=== PATIENT | female | born 1975 | race Two or more races ===

== ENCOUNTER 2016-05-07 14:07 | Emergency (ER) | payer SELFPAY ==
[~2016-05-07] VITALS: Ht 152.4 cm; Wt 86.2 kg
[2016-05-07] MEDS ORDERED: Ketorolac 60mg Inj IM ONE (14:45)
--- NOTE | 2016-05-07 14:45 | Emergency Room Report ---
History of Present Illness General Chief Complaint: Back Pain-No Injury Source: Patient Present Illness HPI 40-year-old female presents to emergency Department complaining of 8/10 in severity left-sided low back pain that radiates down into the left leg x3 weeks. Patient states onset was after cleaning floors at work. Patient states that she was evaluated and prescribed Bell Buckle and Colace which did not provide much relief beyond upsetting her stomach. Patient states that she did not complete her course of prescribed medications. She denies trauma or fall. She denies numbness or tingling. Patient describes pain as sharp and shooting in nature. Patient denies previous injury or previous episodes of similar symptoms. She denies recent spinal procedures, nausea, vomiting, fevers, chills or history of neoplastic disease. Denies numbness tingling or loss of sensation or gross motor movements of the extremities, incontinence of bowel or bladder.Denies hematuria, frequency, or dysuria. Denies CP, Palpitations, LOC, AMS, dizziness, Changes in Vision, Sensation, paresthesias, or a sudden severe headache. Allergies: Coded Allergies: No Known Allergies (Unverified , 05/07/16) Patient History Past Medical History: see triage record Past Surgical History: none Pertinent Family History: none Last Menstrual Period: 04/24/16 Now: No Immunizations: UTD Reviewed Nursing Documentation: PMH: Agreed, PSxH: Agreed Nursing Documentation-PMH Past Medical History: No Stated History Review of Systems All Other Systems: negative except mentioned in HPI Physical Exam Vital Signs Date Time Temp Pulse Resp B/P Pulse Ox O2 Delivery O2 Flow Rate FiO2 05/07/16 14:20 98.1 81 14 101/68 98 Room Air Sp02 EP Interpretation: reviewed, normal General Appearance: no apparent distress, alert, GCS 15, non-toxic Head: normocephalic, atraumatic Eyes: bilateral eye PERRL, bilateral eye normal inspection ENT: hearing grossly normal, normal pharynx, no angioedema, normal voice Neck: full range of motion, supple/symm/no masses Respiratory: chest non-tender, lungs clear, normal breath sounds, speaking full sentences Cardiovascular #1: regular rate, rhythm, no edema Genitourinary: no CVA tenderness Musculoskeletal: back normal, gait/station normal, other - Mild Tenderness to palpation to paraspinal muscles of the left lower back, no spinous process tenderness, no midline tenderness. pt. unable to find POC, FROM with pain exacerbated with standing straight, and forward flexion. Neurologic: alert, oriented x3, responsive, motor strength/tone normal, sensory intact, speech normal Psychiatric: judgement/insight normal, memory normal, mood/affect normal, no suicidal/homicidal ideation Skin: normal color, no rash, warm/dry, well hydrated Lymphatic: no adenopathy Medical Decision Making PA Attestation Dr. forrest is my supervising Physician whom patient management has been discussed with. Diagnostic Impression: Primary Impression: Sciatica of left side ER Course 40-year-old female presents to emergency Department complaining of 8/10 in severity left-sided low back pain that radiates down into the left leg x3 weeks. Patient states onset was after cleaning floors at work. Patient states that she was evaluated and prescribed Bell Buckle and Colace which did not provide much relief beyond upsetting her stomach. Patient states that she did not complete her course of prescribed medications. She denies trauma or fall. She denies numbness or tingling. Patient describes pain as sharp and shooting in nature. Patient denies previous injury or previous episodes of similar symptoms. She denies recent spinal procedures, nausea, vomiting, fevers, chills or history of neoplastic disease Ddx considered: epidural abscess, fracture, sprain/strain, meningitis, spinal chord injury. Vital signs reviewed and are WNL during ED visit. Pt. is afebrile with no signs of infection No new symptoms, and denies recent trauma. No saddle anesthesia noted, Pt. denies incontinence Neurovascular is intact * Mild Tenderness to palpation to paraspinal muscles of the left lower back, no spinous process tenderness, no midline tenderness. * pt. unable to find POC, FROM with pain exacerbated with standing straight, and forward flexion. ORDERS: none warranted at this time. INTERVENTIONS: - 40mg IM Toradol -350mg Soma PO DISCHARGE: At this time pt. is stable for d/c to home. Will provide printed patient care instructions, and any necessary prescriptions. Care plan and follow up instructions have been discussed with the patient prior to discharge. Last Vital Signs Date Time Temp Pulse Resp B/P Pulse Ox O2 Delivery O2 Flow Rate FiO2 05/07/16 14:20 98.1 81 14 101/68 98 Room Air Disposition: HOME, SELF-CARE Condition: Stable Scripts Cyclobenzaprine Hcl* (FLEXERIL*) 10 Mg Tablet 10 MG ORAL THREE TIMES A DAY for 7 Days, #21 TAB Prov: Jania Betancourt 05/07/16 Ibuprofen* (MOTRIN*) 600 Mg Tablet 600 MG ORAL THREE TIMES A DAY, #30 TAB 0 Refills Prov: Jania Betancourt 05/07/16 Departure Forms: Return to Work Return to Work Date: May 08, 2016 Work Restrictions: No Heavy Lifting, No Prolonged Standing Return to Full Activity: May 21, 2016 Patient Instructions: Sciatica Additional Instructions: Take medications as directed. Follow up with PCP in 3-5 days Return sooner to ED if new symptoms occur, or current symptoms become worse. Do not drink alcohol, drive, or operate heavy machinery while taking Muscle relaxer: Flexeril as this may cause drowsiness. - Please note that this Emergency Department Report was dictated using [employer] product development manager technology software, occasionally this can lead to erroneous entry secondary to interpretation by the dictation equipment. Jania Betancourt May 07, 2016 14:45
[2016-05-07] MEDS ORDERED: CYCLOBENZAPRINE10 MG ORAL (14:49)
[2016-05-07] MEDS ORDERED: IBUPROFEN600 MG ORAL (14:49)
[2016-05-07 14:59] VITALS: BP 109/70
[2016-05-07 15:03] VITALS: BP 109/70
== END 2016-05-07 15:05 | disposition home or self-care (01) ==
LOC: EMR 14:43
DX: M54.42 Lumbago with sciatica, left side (principal)
CPT/HCPCS: 96372; 99284

== ENCOUNTER 2017-01-02 13:01 | Emergency (ER) | payer MEDICAID ==
[~2017-01-02] VITALS: Ht 152.4 cm; Wt 88.5 kg
[~2017-01-02 13:01] MED LIST: CYCLOBENZAPRINE10 MG ORAL; IBUPROFEN600 MG ORAL
[2017-01-02] MEDS ORDERED: Ketorolac 30mg Inj IM ONE (13:30)
[2017-01-02] MEDS ORDERED: Dexamethasone 4mg/ml vial IM ONE (14:45)
[2017-01-02] MEDS ORDERED: TRAMADOL HCL50 MG ORAL (15:18)
[2017-01-02] MEDS ORDERED: IBUPROFEN600 MG ORAL (15:18)
[2017-01-02] MEDS ORDERED: CARBAMAZEPINE200 M3 ORAL (15:18)
[2017-01-02 15:25] VITALS: BP 125/66
--- NOTE | 2017-01-02 17:26 | Emergency Room Report ---
History of Present Illness General Chief Complaint: Pain Source: Patient Present Illness HPI The patient is a 41-year-old female presenting for lower back pain. She was in this emergency department recently for the same complaint and diagnosed with sciatica. She states the pain initially began to regress but has worsened now to to work. Pain is an 8/10 burning/tingling sensation which begins at the left lower back and radiates down the back of the left leg. Worse with movement and sitting. She denies any injury to the area. She denies any numbness or tingling. She denies any other symptoms including nausea, vomiting , fever, chills, abdominal pain, chest pain, shortness of breath, urinary incontinence, weakness Allergies: Coded Allergies: No Known Allergies (Unverified , 05/07/16) Patient History Past Medical History: see triage record Pertinent Family History: none Reviewed Nursing Documentation: PMH: Agreed, PSxH: Agreed Nursing Documentation-PMH Past Medical History: No Stated History Review of Systems All Other Systems: negative except mentioned in HPI Physical Exam Vital Signs Date Time Temp Pulse Resp B/P (MAP) Pulse Ox O2 Delivery O2 Flow Rate FiO2 01/02/17 13:07 97.2 104 24 125/66 98 Room Air Sp02 EP Interpretation: reviewed, normal General Appearance: no apparent distress, alert, GCS 15, non-toxic Head: normocephalic, atraumatic Eyes: bilateral eye normal inspection, bilateral eye PERRL ENT: hearing grossly normal, normal pharynx, no angioedema, normal voice Neck: full range of motion, supple/symm/no masses Musculoskeletal: normal inspection, gait/station normal, normal range of motion , no calf tenderness, tender - TTP over the L lumbar paraspinal muscles and SI joint Neurologic: alert, oriented x3, responsive, motor strength/tone normal, sensory intact, speech normal, abnormal gait - antalgic Psychiatric: judgement/insight normal, memory normal, mood/affect normal, no suicidal/homicidal ideation Skin: normal color, no rash, warm/dry, well hydrated Lymphatic: no adenopathy Medical Decision Making PA Attestation Dr. Sykes is my supervising physician. Patient management was discussed with my supervising physician Diagnostic Impression: Primary Impression: Sciatica Qualified Codes: M54.32 - Sciatica, left side ER Course The patient is a 41-year-old female presenting for lower back pain. Ddx considered include but not limited to lumbar strain, sciatica, degenerative disease, cauda equina syndrome, chronic pain, PE: NAD The patient walks with antalgic gait There is tenderness to palpation of the left lumbar paraspinal muscles and left SI joint. No midline tenderness or step-offs. Sensation is intact The patient is given IM Toradol and a soma and states pain has decreased but still present. She is then given IM Decadron and states pain has further decreased She is more comfortable and is able to sit without difficulty. She'll be discharged home and told she is to follow up with her primary doctor for further evaluation and possible referral. ER precautions given Last Vital Signs Date Time Temp Pulse Resp B/P (MAP) Pulse Ox O2 Delivery O2 Flow Rate FiO2 01/02/17 15:25 97.2 88 24 125/66 98 Room Air Status: improved Disposition: HOME, SELF-CARE Condition: Improved Scripts Tramadol Hcl* (ULTRAM*) 50 Mg Tablet 50 MG ORAL Q6H Y for For Pain, #12 TAB 0 Refills Prov: COLT ACOSTA.A. 01/02/17 Ibuprofen* (MOTRIN*) 600 Mg Tablet 600 MG ORAL Q8H Y for For Pain, #30 TAB 0 Refills Prov: COLT ACOSTA.A. 01/02/17 Carbamazepine Xr* (TEGRETOL XR*) 200 Mg Tab.er.12h 200 MG ORAL TWICE A DAY, #30 TAB Prov: COLT ACOSTA P.A. 01/02/17 Patient Instructions: Sciatica With [facility], Sciatica Additional Instructions: I discussed my findings with the patient. All questions and concerns have been answered. Treatment and medication compliance have been addressed. I advised the patient that they need to follow up with PMD in 3-5 days. Return to ED if pain remains or worsens, numbness or tingling occurs, new rash is noticed, fever is noticed, or if needed for any reason. Patient verbalized understanding of discharge instructions. COLT ACOSTA Jan 02, 2017 17:26
== END 2017-01-02 15:37 | disposition home or self-care (01) ==
LOC: EMR 15:00
DX: M54.42 Lumbago with sciatica, left side (principal)
CPT/HCPCS: 96372; 99283; J1100; J1885